=== PATIENT | male | born 1980 | race Caucasian/White ===

== ENCOUNTER 2017-03-26 11:53 | Emergency (ER) | payer MEDICAID ==
[~2017-03-26] VITALS: Ht 167.6 cm; Wt 90.7 kg
[~2017-03-26 11:53] MED LIST: AMOXICILLIN500 MG PO; BENTYL20 MG PO; CELEBREX200 MG PO; CLARITIN10 MG PO; COMPAZINE10 MG PO; CORTISPORIN 1%-10 M1 OT; DIFLUCAN100 MG PO; FLAGYL500 MG PO; FLEXERIL10 MG PO; KEFLEX500 MG PO; LIDEX 0.05% CRE15 GM T; LOTRISONE 0.05%1 CRE TP; MEDROL DOSEPAK4 MG PO; MOTRIN800 MG PO; NAPROSYN500 MG PO; NO DAILY MEDS; PROVENTIL0.09 MG/AC IH; TESSALON PERLE100 M1 PO; ULTRAM50 MG PO; VENTOLIN H0.09 MG/AC INH; VIBRAMYCIN100 MG PO; ZANTAC150 MG PO; ZITHROMAX Z PA250 MG PO; ZYRTEC10 MG PO
== END 2017-03-26 15:01 | disposition home or self-care (01) ==
LOC: ED 11:53
DX: S60.222A Contusion of left hand, initial encounter (principal); F17.200 Nicotine dependence, unspecified, uncomplicated; W00.0XXA Fall on same level due to ice and snow, initial encounter; Y93.89 Activity, other specified; Y92.89 Other specified places as the place of occurrence of the external cause; Y99.9 Unspecified external cause status

== ENCOUNTER 2017-09-08 21:24 | Emergency (ER) | payer OTHER ==
[~2017-09-08] VITALS: Wt 117.9 kg
[2017-09-08 21:59] LABS: BILIRUBIN NEGATIVE (NEGATIVE); BLOOD NEGATIVE (NEGATIVE); CLARITY CLEAR (CLEAR); COLOR YELLOW (YELLOW); GLUCOSE NEGATIVE (NEGATIVE); KETONE TRACE (NEGATIVE); LEUKO ESTERASE NEGATIVE (NEGATIVE); NITRITE NEGATIVE (NEGATIVE); PH 5.5 (5.0-9.0); SPECIFIC GRAVITY >= 1.030 (1.005-1.030); UROBILINOGEN 0.2 E.U./dl (0.2-1.0)
[2017-09-08 22:05] LABS: BACTERIA 1+; MUCOUS 2+
[2017-09-08 22:06] LABS: EPITHELIAL CELLS 0-2; RBC 0-2 rbc/hpf (0-2)
[2017-09-08 22:08] LABS: URINE AMPHETAMINES < 1000 (1000ng/ml); URINE BARBITURATES < 200 (200ng/ml); URINE BENZODIAZEPINES < 200 (200ng/ml); URINE CANNABINOIDS (THC) > 50 (50ng/ml); URINE COCAINE < 300 (300ng/ml); URINE METHADONE < 300 (300ng/ml); URINE OPIATES < 300 (300ng/ml); URINE PHENCYCLIDINE < 25 (25ng/ml)
[2017-09-08 22:56] LABS: BASO # 0.1 10*3/uL (0.0-0.1); BASO % 0.8 % (0.0-1.0); EOS # 0.2 10*3/uL (0.0-0.4); EOS % 1.8 % (1.0-4.0); HEMATOCRIT 45.8 % (42.0-52.0); HEMOGLOBIN 15.2 g/dl (14.0-18.0); LYMPH # 2.6 10*3/uL (1.3-4.4); LYMPH % 27.1 % (27.0-41.0); MEAN CELL VOLUME 92.5 fl (80.0-94.0); MEAN CORPUSCULAR HGB 30.7 pg (27.0-31.0); MEAN CORPUSCULAR HGB CONC 33.2 g/dl (33.0-37.0); MEAN PLATELET VOLUME 12.6 fl (9.6-12.3); MONO # 0.8 10*3/uL (0.1-1.0); MONO % 8.8 % (3.0-9.0); NEUT # 5.9 10*3/uL (2.3-7.9); NEUT % 61.2 % (47.0-73.0); PLATELET COUNT AUTOMATED 134 10*3/uL (130-400); RED BLOOD COUNT 4.95 10*6/uL (4.50-5.90); WHITE BLOOD COUNT 9.6 10*3/uL (4.8-10.8)
[2017-09-08 23:14] LABS: ALKALINE PHOSPHATASE 84 U/L (45-117); BUN 14 mg/dl (7-24); CHLORIDE 106 mmol/L (98-107); CREATININE 1.06 mg/dL (0.70-1.30); POTASSIUM 3.6 mmol/L (3.5-5.1); SGOT/AST 15 IU/L (3-35); SGPT/ALT 36 U/L (12-78); SODIUM 135 mmol/L (136-145); TOTAL PROTEIN 8.2 gm/dL (6.4-8.2)
[2017-09-08 23:15] LABS: TROPONIN I < 0.015 ng/ml (<0.045)
== END 2017-09-09 02:32 | disposition home or self-care (01) ==
LOC: ED 21:24
PROVIDERS: Emergency Medicine
DX: E86.0 Dehydration (principal); R07.9 Chest pain, unspecified; R42 Dizziness and giddiness; F17.200 Nicotine dependence, unspecified, uncomplicated

== ENCOUNTER 2017-10-02 18:14 | Emergency (ER) | payer OTHER ==
[~2017-10-02] VITALS: Ht 167.6 cm; Wt 136.1 kg
[2017-10-02] MEDS ORDERED: PREDNISONE10 MG PO (18:27)
[2017-10-22] MEDS ORDERED: BACITRACIN 500U30 GM OPH (12:00)
== END 2017-10-02 18:32 | disposition home or self-care (01) ==
LOC: ED 18:14
DX: L30.9 Dermatitis, unspecified (principal); R03.0 Elevated blood-pressure reading, without diagnosis of hypertension

== ENCOUNTER → 2018-01-18 | Outpatient (CLI) | payer OTHER ==
[~2018-01-18] MED LIST changes: +BACITRACIN 500U30 GM OPH; +CYCLOBENZAPRINE10 MG PO; +IBU800 MG PO; +PREDNISONE10 MG PO; +PREDNISONE50 MG PO
--- NOTE | ~2018-01-18 | HM ---
[place], [place] HOLTER MONITOR REPORT NAME: ROSAMARIA ABBOTT UNIT #: [id number] ROOM: DOCTOR: MUNIR MCLAUGHLIN MD BIRTHDATE: [birth year] DOS: 01/24/2018 A 24-HOUR HOLTER MONITOR Study was done between 01/18/2018 and 01/20/2018. The data was analyzed on 01/23/2018. This report was generated and is dictated on 01/24/2018. INDICATIONS: Syncope. FINDINGS: The basic rhythm was sinus with an average heart rate of 95 beats per minute. The sinus heart rate varied from 53 to 146 beats per minute. 1. Premature ventricular contraction was recorded. There was no ventricular tachycardia. 2. Occasional premature atrial contractions were recorded. A single 6-beat run of SVT was recorded at 10:44 a.m. with maximum heart rate of 135. There were no prolonged pauses. No diary was submitted. IMPRESSION: 1. Sinus rhythm with relatively rapid average heart rate of 95. 2. Occasional premature contractions with a single 6-beat run of nonsustained supraventricular tachycardia at a rate of 135 beats per minute. No diary was submitted. MUNIR MCLAUGHLIN MD CM:HOLTER:HOLTER MONITOR REPORT [id number] MUNIR MCLAUGHLIN MD
--- NOTE | ~2018-01-18 | EKG ---
[place], [place] ELECTROCARDIOGRAM REPORT NAME: ROSAMARIA ABBOTT UNIT #: [id number] ROOM: DOCTOR: ZENY DRAFT REPORT BIRTHDATE: [birth year] [facility] Test Date: 2018-01-18 Test Time: 09:47:59 Pat Name: ROSAMARIA ABBOTT Department: Room: Gender: M [employer] Supervisor: : 1980 Requested By: JAMEE L[address] Order Number: [id number] Reading MD: Frank Lloyd MD Measurements Intervals [place] Rate: 78 P: 33 W[place]: 151 QRS: 20 QRSD: 82 T: 40 QT: 337 QTc: 384 Interpretive Statements Sinus rhythm No previous ECG available for comparison Electronically Signed On 01-19-2018 13:19:59 PDT by Frank Lloyd MD CM:EKGRPT:ELECTROCARDIOGRAM REPORT [id number] JAMEE MOURA DRAFT REPORT JAMEE L[address]
== END | disposition home or self-care (01) ==
LOC: CT 08:55 → CP 10:00
DX: R55 Syncope and collapse (principal); I47.1 Supraventricular tachycardia

== ENCOUNTER 2018-02-26 22:44 | Emergency (ER) | payer OTHER ==
[~2018-02-26] VITALS: Ht 167.6 cm; Wt 90.7 kg
[~2018-02-26 22:44] MED LIST changes: -CYCLOBENZAPRINE10 MG PO; -IBU800 MG PO; -PREDNISONE50 MG PO
[2018-02-26] MEDS ORDERED: CYCLOBENZAPRINE10 MG PO (22:54)
[2018-02-26] MEDS ORDERED: PREDNISONE50 MG PO (22:54)
[2018-02-26] MEDS ORDERED: IBU800 MG PO (22:54)
== END 2018-02-26 23:09 | disposition home or self-care (01) ==
LOC: ED 22:44
DX: M54.5 Low back pain (principal); F17.200 Nicotine dependence, unspecified, uncomplicated; Z79.899 Other long term (current) drug therapy; Z79.2 Long term (current) use of antibiotics

== ENCOUNTER 2018-04-02 22:22 | Emergency (ER) | payer OTHER ==
[~2018-04-02] VITALS: Ht 172.7 cm; Wt 108.9 kg
[~2018-04-02 22:22] MED LIST changes: +CYCLOBENZAPRINE10 MG PO; +IBU800 MG PO; +PREDNISONE50 MG PO
[2018-04-02] MEDS ORDERED: BROMFED DM COU118 M2 PO ×2 (22:33→22:50)
== END 2018-04-02 22:43 | disposition home or self-care (01) ==
LOC: ED 22:22
DX: J06.9 Acute upper respiratory infection, unspecified (principal)

== ENCOUNTER 2018-08-07 08:57 | Emergency (ER) | payer OTHER ==
[~2018-08-07] VITALS: Ht 167.6 cm; Wt 108.9 kg
[~2018-08-07 08:57] MED LIST changes: +BROMFED DM COU118 M2 PO
[2018-08-07] MEDS ORDERED: IBU800 MG PO (10:17)
[2018-10-03] MEDS ORDERED: CEPHALEXIN500 M1 PO (09:49)
[2018-10-03] MEDS ORDERED: IBU800 MG PO (09:49)
== END 2018-08-07 10:18 | disposition home or self-care (01) ==
LOC: ED 08:57
DX: M79.671 Pain in right foot (principal); F17.200 Nicotine dependence, unspecified, uncomplicated; W22.01XA Walked into wall, initial encounter; Y93.89 Activity, other specified; Y92.89 Other specified places as the place of occurrence of the external cause; Y99.8 Other external cause status

== ENCOUNTER 2018-08-20 11:49 | Emergency (ER) | payer OTHER ==
[~2018-08-20] VITALS: Wt 127.0 kg
[2018-08-20] MEDS ORDERED: PREDNISONE50 MG PO (14:37)
[2018-08-20] MEDS ORDERED: ZITHROMAX250 MG PO (14:37)
[2018-10-03] MEDS ORDERED: IBU800 MG PO (09:49)
[2018-10-03] MEDS ORDERED: CEPHALEXIN500 M1 PO (09:49)
== END 2018-08-20 14:53 | disposition home or self-care (01) ==
LOC: ED 11:49
DX: J20.9 Acute bronchitis, unspecified (principal); F17.200 Nicotine dependence, unspecified, uncomplicated

== ENCOUNTER 2019-05-15 10:18 | Emergency (ER) | payer SELFPAY ==
[~2019-05-15] VITALS: Ht 167.6 cm; Wt 99.8 kg
[~2019-05-15 10:18] MED LIST changes: +CEPHALEXIN500 M1 PO; +ZITHROMAX250 MG PO
[2019-05-15] MEDS ORDERED: AMOXICILLIN500 M2 PO (12:54)
[2019-05-15] MEDS ORDERED: PREDNISONE50 MG PO (12:54)
== END 2019-05-15 12:58 | disposition home or self-care (01) ==
LOC: ED 10:18
DX: J20.9 Acute bronchitis, unspecified (principal); F17.200 Nicotine dependence, unspecified, uncomplicated; Z79.899 Other long term (current) drug therapy

== ENCOUNTER 2021-03-30 14:27 | Emergency (ER) | payer SELFPAY ==
[~2021-03-30] VITALS: Ht 165.1 cm; Wt 113.4 kg
[~2021-03-30 14:27] MED LIST changes: +AMOXICILLIN500 M2 PO
== END 2021-03-30 15:50 | disposition left against medical advice (07) ==
LOC: ED 14:27
DX: R05.9 Cough, unspecified (principal); R53.81 Other malaise; R19.7 Diarrhea, unspecified; Z53.21 Procedure and treatment not carried out due to patient leaving prior to being seen by health care provider

== ENCOUNTER 2021-09-13 18:08 | Emergency (ER) | payer SELFPAY ==
[~2021-09-13] VITALS: Ht 165.1 cm; Wt 113.4 kg
[2021-09-13] MEDS ORDERED: PREDNISONE50 MG PO (18:30)
[2021-09-13] MEDS ORDERED: CYCLOBENZAPRINE10 MG PO (18:30)
== END 2021-09-13 18:45 | disposition home or self-care (01) ==
LOC: ED 18:08
DX: M54.50 Low back pain, unspecified (principal); F17.200 Nicotine dependence, unspecified, uncomplicated; X50.1XXA Overexertion from prolonged static or awkward postures, initial encounter; Y93.89 Activity, other specified; Y92.89 Other specified places as the place of occurrence of the external cause; Y99.9 Unspecified external cause status

== ENCOUNTER 2022-04-13 11:46 | Emergency (ER) | payer SELFPAY ==
[~2022-04-13] VITALS: Ht 167.6 cm; Wt 124.7 kg
[2022-04-13] MEDS ORDERED: ZITHROMAX250 MG PO (12:48)
[2022-04-13] MEDS ORDERED: PREDNISONE20 M1 PO (12:48)
== END 2022-04-13 12:52 | disposition home or self-care (01) ==
LOC: ED 11:46
DX: J20.8 Acute bronchitis due to other specified organisms (principal)

== ENCOUNTER → 2022-09-30 | Outpatient (CLI) | payer OTHER ==
[~2022-09-30] MED LIST changes: +PREDNISONE20 M1 PO
[2022-09-30 11:14] LABS: BASO % 0.3 % (0.0-1.0); EOS % 0.1 % (1.0-4.0); HEMATOCRIT 47.5 % (42.0-52.0); LYMPH # 1.8 10*3/uL (1.3-4.4); LYMPH % 11.8 % (27.0-41.0); MEAN CORPUSCULAR HGB 31.1 pg (27.0-31.0); MEAN CORPUSCULAR HGB CONC 33.5 g/dl (33.0-37.0); MEAN PLATELET VOLUME 12.5 fl (9.6-12.3); MONO # 1.3 10*3/uL (0.1-1.0); MONO % 8.7 % (3.0-9.0); NEUT # 12.1 10*3/uL (2.3-7.9); NEUT % 78.4 % (47.0-73.0); PLATELET COUNT AUTOMATED 157 10*3/uL (130-400); RED BLOOD COUNT 5.11 10*6/uL (4.50-5.90); RED CELL DISTRI WIDTH 12.6 % (0-14.5); WHITE BLOOD COUNT 15.4 10*3/uL (4.8-10.8)
[2022-09-30 11:45] LABS: ALKALINE PHOSPHATASE 85 U/L (46-116); BUN 17 mg/dl (9-23); CHLORIDE 109 mmol/L (98-107); CHOLESTEROL 180 mg/dL (<200); LDL CHOLESTEROL 121 mg/dL (9-159); POTASSIUM 4.3 mmol/L (3.4-5.1); SGPT/ALT 37 U/L (10-49); TOTAL PROTEIN 7.6 gm/dL (6.0-8.0); TRIGLYCERIDES 86 mg/dl (<150); URIC ACID 5.7 mg/dL (3.7-9.2)
== END | disposition home or self-care (01) ==
LOC: LAB 10:44
PROVIDERS: ATTEND Family Medicine
DX: Z00.00 Encounter for general adult medical examination without abnormal findings (principal); M25.561 Pain in right knee; Z78.9 Other specified health status

== ENCOUNTER → 2022-10-03 | Outpatient (CLI) | payer OTHER | END | disposition home or self-care (01) | LOC: CARD 01:14 | PROVIDERS: ATTEND Family Medicine | DX: Z13.6 Encounter for screening for cardiovascular disorders (principal); R06.83 Snoring; Z82.49 Family history of ischemic heart disease and other diseases of the circulatory system ==

== ENCOUNTER 2024-04-18 17:37 | Emergency (ER) | payer SELFPAY ==
[~2024-04-18] VITALS: Ht 167.6 cm; Wt 110.7 kg
[2024-04-18 19:04] LABS: BASO # 0.1 10*3/uL (0.0-0.1); BASO % 1.3 % (0.0-1.0); EOS # 0.3 10*3/uL (0.0-0.4); HEMATOCRIT 46.3 % (42.0-52.0); MEAN CELL VOLUME 92.6 fl (80.0-94.0); MEAN CORPUSCULAR HGB 30.2 pg (27.0-31.0); MEAN CORPUSCULAR HGB CONC 32.6 g/dl (33.0-37.0); MEAN PLATELET VOLUME 12.1 fl (9.6-12.3); MONO # 0.7 10*3/uL (0.1-1.0); MONO % 10.4 % (3.0-9.0); NEUT # 3.5 10*3/uL (2.3-7.9); NEUT % 49.7 % (47.0-73.0); PLATELET COUNT AUTOMATED 130 10*3/uL (130-400); RED CELL DISTRI WIDTH 12.6 % (0-14.5)
[2024-04-18 19:25] LABS: ALKALINE PHOSPHATASE 79 U/L (46-116); BUN 12 mg/dl (9-23); CHLORIDE 107 mmol/L (98-107); POTASSIUM 3.8 mmol/L (3.4-5.1); SGPT/ALT 37 U/L (5-49); TOTAL PROTEIN 7.4 gm/dL (6.0-8.0)
[2024-04-18] MEDS ORDERED: GUAIFENESIN/DEXTROMETHORPHAN 10 ML UDC PO ONE (21:15)
[2024-04-18] MEDS ORDERED: BROMFED DM COU118 M2 PO (21:25)
== END 2024-04-18 21:54 | disposition home or self-care (01) ==
LOC: ED 17:37
PROVIDERS: Nurse Practitioner Family
DX: J06.9 Acute upper respiratory infection, unspecified (principal); Z20.822 Contact with and (suspected) exposure to COVID-19; F17.200 Nicotine dependence, unspecified, uncomplicated

== ENCOUNTER 2024-10-15 15:55 | Emergency (ER) | payer SELFPAY ==
[~2024-10-15] VITALS: Ht 167.6 cm; Wt 117.9 kg
[2024-10-15] MEDS ORDERED: Ondansetron Hydrochloride 4 MG/2 ML VIAL IV ONE (18:05)
[2024-10-15] MEDS ORDERED: SODIUM CHLORIDE 0.9% 1,000 ML IV ONE (18:05)
[2024-10-15 18:24] LABS: BASO # 0.1 10*3/uL (0.0-0.1); BASO % 1.0 % (0.0-1.0); EOS # 0.2 10*3/uL (0.0-0.4); EOS % 2.0 % (1.0-4.0); MEAN CELL VOLUME 92.4 fl (80.0-94.0); MEAN CORPUSCULAR HGB 30.5 pg (27.0-31.0); MEAN PLATELET VOLUME 12.6 fl (9.6-12.3); MONO # 0.7 10*3/uL (0.1-1.0); MONO % 7.9 % (3.0-9.0); NEUT # 5.4 10*3/uL (2.3-7.9); NEUT % 61.1 % (47.0-73.0); NUCLEATED RED BLOOD CELL 0.0 % (0.0-0.0); NUCLEATED RED BLOOD CELL 0.0 10*3/uL (0.0-0.0); PLATELET COUNT AUTOMATED 146 10*3/uL (130-400); RED CELL DISTRI WIDTH 12.6 % (0-14.5)
[2024-10-15 18:55] LABS: BUN 12 mg/dl (9-23)
== END 2024-10-15 20:27 | disposition home or self-care (01) ==
LOC: ED 15:55
PROVIDERS: Emergency Medicine
DX: K42.9 Umbilical hernia without obstruction or gangrene (principal)

== ENCOUNTER 2024-10-21 11:44 | Emergency (ER) | payer SELFPAY ==
[~2024-10-21] VITALS: Ht 167.6 cm; Wt 127.0 kg
== END 2024-10-21 12:13 | disposition home or self-care (01) ==
LOC: ED 11:44
DX: K42.9 Umbilical hernia without obstruction or gangrene (principal)

== ENCOUNTER 2024-12-03 12:20 | Emergency (ER) | payer SELFPAY ==
[~2024-12-03] VITALS: Ht 167.6 cm; Wt 104.3 kg
[2024-12-03] MEDS ORDERED: IBUPROFEN 600 MG TAB PO ONE (12:35)
[2024-12-03] MEDS ORDERED: AMOXICILLIN 875 MG TAB PO ONE (12:35)
[2024-12-03] MEDS ORDERED: AMOXICILLIN875 MG PO (12:38)
== END 2024-12-03 12:49 | disposition home or self-care (01) ==
LOC: ED 12:20
DX: H66.92 Otitis media, unspecified, left ear (principal); Z79.899 Other long term (current) drug therapy